=== PATIENT | male | born 1990 | race African-American/Black ===

== ENCOUNTER → 2017-10-09 | Outpatient (CLI) | payer MEDICARE, MEDICAID ==
[2017-10-09 11:15] LABS: HEMATOCRIT 41.4 % (37.9-51.0); MEAN CORPUSCULAR HGB CONC 33.8 g/dL (32.0-36.0); MEAN CORPUSCULAR VOLUME 86 fl (80-97); PLATELET COUNT 272 10^3/uL (150-450); RED BLOOD COUNT 4.83 10^6/uL (4.35-5.55); RED CELL DISTRIBUTION WIDTH 14.4 % (11.5-14.0); WHITE BLOOD COUNT 3.6 10^3/uL (4.0-10.5)
[2017-10-09 11:31] LABS: ALANINE AMINOTRANSFERASE 76 U/L (21-72); ALBUMIN 4.6 g/dL (3.5-5.0); ALKALINE PHOSPHATASE 128 U/L (38-126); ANION GAP 8 (5-19); ASPARTATE AMINO TRANSFERASE 177 U/L (17-59); BILIRUBIN,DIRECT 0.2 mg/dL (0.0-0.4); BILIRUBIN,TOTAL 0.6 mg/dL (0.2-1.3); BLOOD UREA NITROGEN 11 mg/dL (7-20); CARBON DIOXIDE 33 mmol/L (22-30); CHLORIDE 103 mmol/L (98-107); CHOLESTEROL 164.96 mg/dL (0-200); GLUCOSE 78 mg/dL (75-110); POTASSIUM 4.8 mmol/L (3.6-5.0); SODIUM 143.5 mmol/L (137-145); TOTAL PROTEIN 7.2 g/dL (6.3-8.2); TRIGLYCERIDES 75 mg/dL (<150)
[2017-10-09 11:41] LABS: DIRECT LDL 93 mg/dL (<100)
== END ==
LOC: OD 10:18
PROVIDERS: ATTEND Psychiatry & Neurology Psychiatry
DX: F31.9 Bipolar disorder, unspecified (principal); Z79.899 Other long term (current) drug therapy
CPT/HCPCS: 36415; 80053; 80061; 80164; 83036; 85027

== ENCOUNTER → 2018-12-27 | Outpatient (CLI) | payer MEDICARE, MEDICAID ==
--- NOTE | 2018-12-27 12:21 | RADIOLOGY REPORT (SQ) ---
EXAM DESCRIPTION: SHOULDER RIGHT 2 OR MORE VIEWS COMPLETED DATE/TIME: 12/27/2018 12:09 pm REASON FOR STUDY: RIGHT SHOULDER PAIN; UNSPECIFIED CHRONICITY M25.511 PAIN IN RIGHT SHOULDER COMPARISON: None. NUMBER OF VIEWS: Three views. TECHNIQUE: Internal rotation, external rotation, and Y view images acquired of the right shoulder. LIMITATIONS: None. FINDINGS: MINERALIZATION: Normal. BONES: No acute fracture or dislocation. No worrisome bone lesions. No significant osteophytes. GLENOHUMERAL JOINT: No significant findings. ACROMIOCLAVICULAR JOINT: No large osteophytes. SOFT TISSUES: No calcifications. VISUALIZED RIBS, SPINE, AND LUNG: No other significant finding. OTHER: No other significant finding. IMPRESSION: NEGATIVE STUDY OF THE RIGHT SHOULDER. NO EXPLANATION FOR PAIN. TECHNICAL DOCUMENTATION: JOB ID: [id number] [employer]- All Rights Reserved Reading location - IP/workstation name: [email or web address]
== END ==
LOC: OD 11:53
PROVIDERS: ATTEND Family Medicine
DX: M25.511 Pain in right shoulder (principal)